=== PATIENT | female | born 1985 | race Caucasian/White ===

== ENCOUNTER → 2024-04-01 10:29 | Outpatient (CLI) | payer OTHER, MEDICAID, SELFPAY ==
[2024-04-01 12:43] LABS: HCG Quantitative /Beta subunit < 2.39 mIU/mL; Prolactin 6.2 ng/mL (3.0-18.6)
[2024-04-01 13:07] LABS: TSH w/ Reflex to FT4 1.26 uIU/mL (0.47-4.68)
[2024-04-01 17:01] LABS: Follicle Stimulating Hormone 4.32 mIU/mL; Luteinizing Hormone 3.44 mIU/mL
== END ==
PROVIDERS: PCP Family Medicine; Referring Provider Obstetrics & Gynecology; Visit Provider Obstetrics & Gynecology
DX: N91.2 Amenorrhea, unspecified (principal)
CPT/HCPCS: 36415; 82670; 83001; 83002; 84146; 84443; 84702